=== PATIENT | male | born 1995 | race African-American/Black ===

== ENCOUNTER 2017-11-07 11:59 | Emergency (ER) | payer OTHER ==
[~2017-11-07] VITALS: Ht 180.3 cm; Wt 68.0 kg
[2017-11-07 12:07] VITALS: BP 106/69
[2017-11-07] MEDS ORDERED: Tetanus/Diptheria/Pertussis Vaccine 0.5ml Syr IM ONE (12:30)
--- NOTE | 2017-11-07 13:00 | Emergency Room Report ---
History of Present Illness General Chief Complaint: Laceration Source: Patient Present Illness HPI 22 YO Male presents to the ED c/o laceration to distal left index finger. 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 He is not up-to-date with tetanus vaccination. He denies taking blood thinning medications. He rates his pain as 5 /10 in severity and states it is exacerbated with palpation, resting provides relief. He reports continued bleeding at this time. Allergies: Coded Allergies: No Known Allergies (Unverified , 11/07/17) Patient History Past Medical History: see triage record Past Surgical History: none Pertinent Family History: none Reviewed Nursing Documentation: PMH: Agreed; PSxH: Agreed Nursing Documentation-PMH Past Medical History: No Stated History Review of Systems All Other Systems: negative except mentioned in HPI Physical Exam Vital Signs Date Time Temp Pulse Resp B/P (MAP) Pulse Ox O2 Delivery O2 Flow Rate FiO2 11/07/17 12:07 97.8 75 18 106/69 95 Room Air 97.9 Sp02 EP Interpretation: reviewed, normal General Appearance: no apparent distress, alert, GCS 15, non-toxic Head: normocephalic, atraumatic ENT: hearing grossly normal, normal voice Neck: full range of motion Respiratory: lungs clear, normal breath sounds, speaking full sentences Cardiovascular #1: regular rate, rhythm, normal capillary refill Musculoskeletal: back normal, gait/station normal, normal range of motion, non- tender Neurologic: alert, oriented x3, responsive, motor strength/tone normal, sensory intact, speech normal, grossly normal Psychiatric: judgement/insight normal, no suicidal/homicidal ideation Skin: normal color, no rash, warm/dry, well hydrated, laceration - Fingertip avulsion laceration approx 1 cm in length to the left 2nd digit Medical Decision Making PA Attestation Dr. Crabtree is my supervising Physician whom patient management has been discussed with. Diagnostic Impression: Primary Impression: Avulsion of finger tip Qualified Codes: S61.209A - Unspecified open wound of unspecified finger without damage to nail, initial encounter ER Course Pt. presents to the ED c/o laceration to distal left index finger. 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 He is not up-to-date with tetanus denies taking blood thinning medications. Ddx considered but are not limited to laceration, tendon injury, cellulitis, amputation Vital signs: are WNL, pt. is afebrile H&PE are most consistent with: Fingertip avulsion laceration approx 1 cm in length . ORDERS: none required at this time, the diagnosis is clinical ED INTERVENTIONS: -Tetanus vaccine was administered as pt. vaccination status was unknown. - The wound was copiously irrigated with normal saline, and explored for foreign body for which no FB was found. - sterile pressure dressing is applied. -Right index Splint applied by psychology tech. Pt. remains neurovascularly intact. Discussed with patient: That we make every effort so that scarring will be as cosmetically pleasing as possible with our limited cosmetic skill set in the Emergency dept. Regardless of our best efforts there will be scarring after laceration repair. The extent of scarring is unknown at this time. DISCHARGE: At this time pt. is stable for d/c to home. Will provide printed patient care instructions, and any necessary prescriptions. Care plan and follow up instructions have been discussed with the patient prior to discharge. Last Vital Signs Date Time Temp Pulse Resp B/P (MAP) Pulse Ox O2 Delivery O2 Flow Rate FiO2 11/07/17 12:07 97.8 97 18 106/69 95 Room Air 97.8 Disposition: HOME, SELF-CARE Condition: Stable Scripts Bacitracin/Polymyxin B Sulfate (BACITRACIN-POLYMYXIN OINTMENT) 28.35 Gm Oint...g. 1 APPLIC TP BID, #28.3 GM Prov: Reta Jimenez 11/07/17 Departure Forms: Return to Work Return to Work Date: Nov 12, 2017 Work Restrictions: No Heavy Lifting Other Restrictions: limited use of left hand, keep clean and dry. x 1.5 weeks. Return to Full Activity: Nov 17, 2017 Patient Instructions: Nonsutured Laceration Care Additional Instructions: Take medications as directed. Follow up with a Primary Care Provider in 3-5 days, even if your symptoms have resolved. --Please review list of primary care clinics, if you do not already have a primary care provider Return sooner to ED if new symptoms occur, or current symptoms become worse. - Please note that this Emergency Department Report was dictated using [email or web address] [email or web address] technology software, occasionally this can lead to erroneous entry secondary to interpretation by the dictation equipment. Reta Jimenez Nov 07, 2017 13:00
[2017-11-07] MEDS ORDERED: BACITRACIN-P28.35 GM TP (13:01)
[2017-11-07 13:15] VITALS: BP 115/65
== END 2017-11-07 13:15 | disposition home or self-care (01) ==
LOC: EMR 12:56
DX: S61.211A Laceration without foreign body of left index finger without damage to nail, initial encounter (principal); W26.0XXA Contact with knife, initial encounter; Y93.G9 Activity, other involving cooking and grilling; Y92.511 Restaurant or cafe as the place of occurrence of the external cause; Y99.0 Civilian activity done for income or pay
CPT/HCPCS: 90471; 90715; 99283